=== PATIENT | female | born 1960 | race Caucasian/White ===

== ENCOUNTER 2016-12-17 09:48 | Day surgery (SDC) | payer OTHER ==
[~2016-12-17] VITALS: Ht 162.6 cm; Wt 76.1 kg
[~2016-12-17 09:48] MED LIST: AMIT10TA6 PO; ESTR0.5T; TERB250T4 PO
[2016-12-17] MEDS ORDERED: fentaNYL-PF 50 mCg/mL 2 mL Inj ONE (09:49)
[2016-12-17] MEDS ORDERED: Propofol 10,000 mCg/mL 20 mL Inj ONE (09:49)
[2016-12-17 10:06] VITALS: BP 127/84; PULSE 90; RESP 12; O2SAT 94
[2016-12-17] MEDS: Lactated Ringer's 1,000 ML IV SCH ×2 (10:06→12:30)
[2016-12-17] MEDS ORDERED: THYR30TA2 PO (10:14)
[2016-12-17] MEDS ORDERED: VALA500T38 PO (10:14)
[2016-12-17] MEDS ORDERED: CeFAZolin Inj 2 gm / 50mL D5W IV ONE (12:13)
[2016-12-17] MEDS ORDERED: Lactated Ringer's 1,000 ML IV SCH (12:26)
[2016-12-17] MEDS ORDERED: Lactated Ringer's 500 ML IV PRN (12:26)
--- NOTE | 2016-12-17 12:26 | PCM.HPANE ---
Patient Data Date of Service: Dec 17, 2016 (2739) Surgeon Admitting Provider: Attending Provider:Huan Lopez DPM Primary Care Physician:Janay Kim MD Other Provider:Roxy Parmar Anesthesia Reason for Visit Left Foot Hallux Valgus Ht/WT & BMI Height (Feet): 5 Height (Inches): 4 Weight (Kilograms): 76.1 Body Mass Index 28.00 Allergies Coded Allergies: Sulfa (Sulfonamide Antibiotics) (Verified Allergy, Severe, 05/28/13) Past Anesthesia History Anesthesia History: Denies:: Abnormal Airway, Anesthesia Reactions (nauseated) , Difficult Intubation, Fam Anesthesia Reaction (nausea), Fam Malignant Hypertherm, Malignant Hyperthermia Diabetes History Hx Diabetes?: No MRSA MRSA: No Medications Hypertension Medication: No Home Meds Incl Beta Tereza: No Reported Medications Thyroid,Pork (Dawson Thyroid)30 Mg Guhsax64 Mg PO DAILY #30 12/17/16 Valacyclovir 500 Mg Lrhhle360 Mg PO DAILY #90 12/17/16 Estradiol 0.5 Mg Tablet Daily 12/15/16 Discontinued Reported Medications Terbinafine (Lamisil)250 Mg Mitcjm319 Mg PO DAILY 12/15/16 Amitriptyline 10 Mg Qzbugf66 Mg PO HS Ref 0 12/15/16 MULTIVITAMIN-Expunged Drug, Do Not Renew! (MULTI VITAMIN -Expunged Drug, Do Not Renew!)1 Each Tablet1 Each PO 05/29/13 Fish Oil-Expunged Drug, Do Not Renew! Cap1 05/29/13 CHOLECALCIFEROL-Expunged Drug, Do Not Renew! (VITAMIN D-Expunged Drug, Do Not Renew!)400 Unit Thqctf299 Unit PO 05/29/13 Glucosamine Hcl/Msm (Sm Glucosamine & Msm Tablet)1 Tab Tablet1 Tab PO 05/29/13 Amitriptyline-Expunged Drug, Do Not Renew! 25 Mg Ieabuh44 Mg PO 05/29/13 Estradiol Micronized (Estradiol)0.1 Gm Powder0.1 Gm MC 05/29/13 Valacyclovir HCl-Expunged Drug, Do Not Renew! 500 Mg Gif999 Mg PO 05/29/13 Gabapentin-Expunged Drug, Do Not Renew! (Neurontin-Expunged Drug, Do Not Renew!) 800 Mg Fvpchi759 Mg PO 05/29/13 History HEENT History: Positive for:: Cataracts (bilateral) Denies:: Abnormal Airway Difficult Intubation Glaucoma Hearing Problem Hx of Heart Problems?: No Cardiovascular History: Positive for:: Peripheral Vascular (hx of raynauds- pre-op vascular study done) Denies:: Congestive Heart Failure Edema Hypertension Hx of Respiratory Problem?: No Respiratory History: Denies:: Asthma Cough Emphysema Oxygen Administration Pneumonia Tuberculosis Use of C-PAP Machine Use of Inhalers / NEBS Hx Neurologic Problems?: No Neurological History: Denies:: CVA Dementia Dizziness Multiple Sclerosis Parkinson's Disease Seizures Hx of GI Problems?: No Gastrointestinal History: Denies:: Cirrhosis Diverticulitis Gall Bladder Disease Gastroesphageal Reflux Gastrointestinal Bleeding Heartburn Hepatitis Hiatal Hernia Liver Disease Rectal Bleeding Hx of Problems?: Yes Genitourinary History: Positive for:: Urinary Tract Infection (hx of, not current) Other Pertinent History: hx of partial nephrectomy - right Female Hx: Denies:: Currently (hx: hysterectomy) Problems with Breasts? Skin History: Positive for:: History Skin Disorders? Denies:: Pressure Ulcers Hx Musculoskeletal Problems?: Yes Musculoskeletal History: Positive for:: Back Injury (hx of lumbar disc surgery ) Musculoskeletal Trauma (left foot bunion current admission problem) Osteoarthritis Denies:: Fibromyalgia Joint Replacement Hx of Psycho/Social Problems?: No Psycho Social History: Denies:: Anxiety Hx Depression Hx Surgeries?: Yes (HYSTERECTOMY, LAMINECTOMY, PARTIAL NEPHRECTOMY, OVARIAN CYST REMOVAL) Hx Any Other Health Problems?: Yes Other History: Positive for:: Thyroid Disease Denies:: Cancer History Blood Transfusions: Positive for:: Accept Blood Products? Denies:: Blood Transfusions Hx Diabetes: No Hx Alcohol Use: YesAlcoholic Drinks Per Day: one drink dailyHx Substance Use: NoHave You Smoked inLast 12 mo: No Stop/Bang P-Blood Pressure: treated: No B- Body Mass Index > 35 kg/m2: No A- Age over 50: Yes N- Neck Large Circumference: No G- Gender Male: No DAMION Risk Assessment: Low Risk, <3 Yes Risk Assessment Category Category 1A: Patient has history of documented sleep apnea, and HAS NOT received any narcotic, sedative or anesthesia administration during this stay. Category 1B: Patient has history of documented sleep apnea, and HAS received any narcotic , sedative or anesthesia administration during this stay Category 2: Patient has SUSPECTED Obstructive Sleep Apnea, and HAS received any narcotic , sedative or anesthesia administration during this stay. Category 3: Patient has SUSPECTED Obstructive Sleep Apnea and HAS NOT received narcotic, sedative or anesthesia administration during this stay. Category 4: Outpatient in Procedural Areas with known sleep apnea or who screen positive for High Risk via the STOP/BANG questionnaire. Exam Exam Vital Signs Vital Signs Date Time Temp Pulse Resp B/P Pulse Ox O2 Delivery O2 Flow Rate FiO2 12/17/16 10:06 35.9 90 12 127/84 94 Room Air General Appearance: Alert, Oriented X3, Cooperative HEENT/AIRWAY: MP 2 Lungs: Clear to Auscultation Heart: Exam Unremarkable Meds/Labs/Diagnostics Admission Meds Current Medications Lactated Ringer's (Lr) 1,000 ml @ 120 mls/hr Q8H20M IV Last administered on t 10:06; Start 12/17/16 at 05:00; Stop 12/17/16 at 13:19 Plan Impression Patient chart reviewed, patient interviewed and anesthestic plan with risks, benefits, and alternatives discussed, and informed consent obtained. NPO Status: 12/16/16 ASA Physical Status: ASA2 Mod Systemic Disease Anesthetic Plan: MAC Bene/Risks/Altern/Consents: Yes HP Complete Prior to Induction: Yes Dex Adam MD Dec 17, 2016 12:26
[2016-12-17] MEDS ORDERED: fentaNYL-PF 50 mCg/mL 2 mL Inj IVPUSH PRN (12:30)
[2016-12-17] MEDS ORDERED: Ondansetron 2 mg/mL 2 mL Inj IVPUSH PRN (12:30)
[2016-12-17] MEDS ORDERED: Phenylephrine 10,000 mCg/mL Inj IVPUSH PRN (12:30)
[2016-12-17] MEDS ORDERED: EPHEDrine Sulfate 50 mg/mL Inj IVPUSH PRN (12:30)
[2016-12-17] MEDS ORDERED: Dexamethasone 4 mg/mL Inj IVPUSH PRN (12:30)
[2016-12-17] MEDS ORDERED: HYDROmorphone 1 mg/mL Inj IVPUSH PRN (12:30)
[2016-12-17] MEDS ORDERED: MetoCLOpramide 5 mg/mL 2 mL Inj IVPUSH PRN (12:30)
[2016-12-17] MEDS ORDERED: CeFAZolin Inj 2 GM in IV Premix 1 EACH IV ONE (12:40)
[2016-12-17] MEDS ORDERED: Lidocaine 1%-Epi 1:100,000 20 mL Inj NERVEBLOCK ONE (12:55)
[2016-12-17] MEDS ORDERED: Bupivacaine 0.5%/EPI 50 mL Inj INFILTRATE ONE (12:56)
[2016-12-17] MEDS ORDERED: Dexamethasone 4 mg/mL Inj IV ONE (13:34)
[2016-12-17 13:50] VITALS: BP 104/60; PULSE 75; RESP 12; O2SAT 97
--- NOTE | 2016-12-17 13:52 | PCM.ANEP2 ---
Post Anesthesia Evaluation ASA/CMS Post Anesthesia VS in Patient's Normal Range?: Yes Resp Stable; Airway Patent?: Yes CV Function & Hydration Stable: Yes Mental Status Recovered?: Yes Pain control Satisfactory?: Yes N/V Control Satisfactory?: Yes Dex Adam MD Dec 17, 2016 13:52
--- NOTE | 2016-12-17 13:52 | PCM.ANEP1 ---
Post Anesthesia Phase 1 PACU Phase 1 Assessment Date of Service: Dec 17, 2016 (1225) Vital Signs 80, 36.6, 96%, 16, 103/59 Vital Signs Date Time Temp Pulse Resp B/P Pulse Ox O2 Delivery O2 Flow Rate FiO2 12/17/16 10:06 35.9 90 12 127/84 94 Room Air Anesthetic Administered: MAC Level of Alertness: Awake, talking STREETER's with Equal Strength: Yes Pain: No Nausea or Vomiting: No Oxygen Delivery: Room Air Lungs: Clear to Auscultation Dermatome Level: Full Sensation Summary UNEVENTFUL SEDATION Dex Adam MD Dec 17, 2016 13:52
--- NOTE | 2016-12-17 13:55 | PCM.SURGPO ---
Immediate Operative Note Date of Surgery: Dec 17, 2016 Pre Operative Diagnosis Bunion left foot Post Operative Diagnosis Bunion left foot Procedure Bunionectomy with osteotomy Surgeon and Bank Manager Surgeon: Huan Lopez DPM Assistants: None Findings bunion Complications There were no periprocedural complications identified. Surgical Specimen Removed: No Specimen sent to Pathology: No Anesthetic Administered: MAC Grafts, Implants: None Output, Estimated Blood Loss: 1 Blood Admin during surgery: No Huan Lopez DPM Dec 17, 2016 13:55
[2016-12-17 14:40] VITALS: BP 110/66; PULSE 72; RESP 14; O2SAT 97
--- NOTE | 2016-12-17 17:00 | OP ---
[address] [address] OPERATIVE REPORT PATIENT: PARISH BETHEA : 1960 MR#: [id number] ADMIT: 12/17/2016 JOB ID: [id number] DATE OF SURGERY: 12/17/2016 SURGEON: Huan Lopez DPM PREOPERATIVE DIAGNOSIS(ES): Bunion deformity, left foot. POSTOPERATIVE DIAGNOSIS(ES): Bunion deformity, left foot. OPERATION PERFORMED: Bunionectomy with osteotomy, left foot. ANESTHESIA: Local plus IV sedation. HEMOSTASIS: Ankle pneumatic tourniquet to 250 mmHg x47 minutes. ESTIMATED LOSS: Minimal. INDICATIONS: This patient has had a painful bunion deformity of the left foot. After failure of conservative care consisting of alteration in shoes and padding, and consideration of the risks and benefits of surgery, the patient is noted to proceed with surgical correction of bunion deformity. DESCRIPTION OF PROCEDURE: The patient was brought to the operating room and placed on table in supine position and IV sedation administered. Upon administration of IV sedation, a 20 mL mix 1:1 Xylocaine with epinephrine and 0.5% Marcaine with epinephrine were infiltrated about the posterior tibial nerve and across the dorsum of the foot for local anesthesia. Pneumatic tourniquet was applied to the left ankle and the left foot was then prepped and draped in the usual aseptic manner. Anesthesia was tested and found to be inadequate. An additional 9 mL of 1% Xylocaine with epinephrine was then infiltrated about the posterior tibial nerve. When anesthesia was retested, it was found to be adequate. An Esmarch bandage was then applied from toes to heel to exsanguinate the foot. The tourniquet was inflated to 250 mmHg and the Esmarch bandage removed. Attention was directed to the dorsal medial aspect of the 1st metatarsophalangeal joint where a 7 cm linear incision was then made over this joint. This skin incision was deepened via sharp and blunt dissection with superficial vessels ligated as needed. Vital structures were identified and retracted. Dissection was carried out to the level of the 1st metatarsophalangeal joint. Blunt dissection was then carried out exposing the medial aspect of this joint capsule. Attention was then directed to the 1st intermetatarsal space, where sharp and blunt dissection was carried out exposing the tendon of the adductor hallucis. This tendon was then sharply incised and reflected. Fibular sesamoid ligament and lateral capsulotomy was performed. The foot was loaded and there was felt to be adequate lateral release. Attention was redirected medially, where a T-type capsulotomy was then made in the 1st metatarsophalangeal joint capsule. The head of the 1st metatarsal was then exposed. A through and through chevron osteotomy was then made at this time with sagittal saw, the apex of the chevron being located approximately 1 cm proximal to the articular surface. The capital fragment was then mobilized and displaced laterally and held in place with K-wire. At this time two 2.7 screws, the more distal one measuring 14 mm in length and the more proximal measuring 16 mm in length, were then placed in lag fashion across the osteotomy for fixation. The medial eminence was then remodeled. The foot was then loaded and lavaged. There was felt to be adequate correction. At this time intraoperative fluoroscopy was utilized to verify correction of the deformity and placement of the screws. This appeared to be achieved by these examinations. The capsule was then closed with 3-0 Vicryl, deep tissues were approximated with 4-0 Vicryl, and the skin closed with 4-0 Prolene. Tincture of benzoin and Steri-Strips were then applied across the skin incision and 4 mg dexamethasone was then infiltrated for postoperative analgesia. Xeroform dressing and a dry sterile compressive dressing were applied to the foot. The tourniquet was released at 47 minutes with immediate return of color to all digits. The patient was then taken from the operating room to Day Surgery with vital signs stable, capillary refilling time within normal limits to all digits, and with no apparent complications.
== END 2016-12-17 23:59 | disposition home or self-care (01) ==
LOC: SAS 09:48
PROVIDERS: ATTEND Podiatrist
DX: M20.12 Hallux valgus (acquired), left foot (principal); M21.612 Bunion of left foot; M79.672 Pain in left foot; I73.9 Peripheral vascular disease, unspecified; I73.00 Raynaud's syndrome without gangrene; Z87.891 Personal history of nicotine dependence
CPT/HCPCS: 28296; 76000; C1713; J0690; J1100; J2250; J3010; J7120